=== PATIENT | female | born 1985 | race Caucasian/White ===

== ENCOUNTER 2021-10-30 05:46 | Emergency (ER) | payer OTHER, SELFPAY ==
[2021-10-30] VITALS (7 sets, daily range): BP systolic 115–148; BP diastolic 67–93; PULSE 76–103; RESP 14–18; TEMP 36.5–36.9; O2SAT 97–100; BMI 32.2
--- NOTE | ~2021-10-30 | US_ITS ---
EXAMINATION: US OB limited CLINICAL INFORMATION: Pain COMPARISON: None TECHNIQUE: Transabdominal imaging of the uterus was performed utilizing estrada scale and color doppler technique, with m-mode imaging. FINDINGS: Single live intrauterine fetus in the breech position with cardiac activity detected at 158 bpm. movement is present. Amniotic fluid volume was not measured prior ordering provider. Posterior placenta. No perigestational hemorrhage. No images were taken documenting the placental edge however it was not visualized on views of the cervix. No color images were obtained of the cervix to exclude vasa previa. Limited views of the cervix given bladder was nondistended and it was not well evaluated, however appears to measure approximately 4.3 cm. anatomic survey and biometric measurements were not obtained per ordering provider. The ovaries were not identified. No adnexal mass. US/US OB limited IMPRESSION: Single living intrauterine gestation in breech position with cardiac activity detected at 158 bpm. Posterior placenta. No perigestational hemorrhage. No images were taken documenting the placental edge however it was not visualized on views of the cervix. No color images were obtained of the cervix to exclude vasa previa. Limited views of the cervix given bladder was nondistended and it was not well evaluated on the however appears to measure approximately 4.3 cm. A repeat could be considered subsequent to bladder filling. The ovaries were not identified transabdominally. No adnexal mass.
--- NOTE | 2021-10-30 06:25 | PC.NURSE ---
This RN used heart monitor to listen to heart rate. Heart rate found to be 152. PT is still experiencing cramping pain in left lower quadrant.
[2021-10-30 06:52] LABS: MANUAL DIFF FLAG NO
[2021-10-30 06:53] LABS: Basophils Percent Auto 0.2 % (0-2); Eosinophils Percent Auto 0.1 % (0-4); Hematocrit 34.4 % (37.0-47.0); Hemoglobin 11.8 g/dl (12.0-16.0); Imm Gran Abs Auto 0.13 X10*3/uL (0.00-0.03); Lymphocytes Absolute Auto 1.5 X10*3/uL (1.2-4.9); Lymphocytes Percent Auto 11.6 % (20-40); Mean Corpuscular HGB Conc 34.3 g/dl (31.0-35.0); Mean Corpuscular Hemoglobin 31.1 pg (27.0-33.0); Mean Corpuscular Volume 90.5 fL (80.0-98.0); Mean Platelet Volume 8.6 fL (9.4-12.3); Monocytes Absolute Auto 0.7 X10*3/uL (0.1-1.2); Monocytes Percent Auto 5.5 % (2-11); Neutrophils Absolute Auto 10.6 x10*3/uL (2.0-8.3); Neutrophils Percent Auto 81.6 % (45-73); Platelet Count 254 X10*3/uL (160-400); Red Cell Distribution Width 12.3 % (11.0-16.0)
[2021-10-30 06:54] LABS: Appearance Urine CLEAR; Color Urine YELLOW; Glucose Urine UA NEG (NEG); Leukocyte Esterase Urine NEG (NEG); Nitrite Urine NEG (NEG); Specific Gravity - Urine <= 1.005 (1.005-1.025); Urine Blood NEG (NEG); Urine Ketones NEG (NEG); Urine Protein NEG (NEG-TRACE)
--- NOTE | 2021-10-30 07:01 | ED_ITS ---
HPI - Nausea/Vomiting/Diarrhea General Chief complaint: Vaginal Bleeding Stated complaint: vaginal bleed 23 wks preg Time Seen by Provider: 10/30/21 06:35 Source: patient Mode of arrival: ambulatory Limitations: no limitations History of Present Illness HPI Narrative: FHT 152 - 23 weeks seen at [facility] no issues during this comes in after developing LLQ pain and diarrhea yesterday then noted intermittent bouts of bloody stool with clots since 630pm about 2 per hour with LLQ cramping - no aspirin, food exposures, fam hx of IBD, recent antibiotics, no prior issues with bleeding in the past MD elicited complaint: diarrhea and abdominal pain Onset (ago): day(s) (1) Associated nausea: No Associated abdominal pain: Yes Location of pain: LLQ Pain consistency: colicky Severity: moderate Quality: cramping Exacerbating factors: bowel movement Relieving factors: none Associated symptoms: loss of appetite and other (hematochezia) Related Data Allergies Allergy/AdvReac Type Severity Reaction Status Date / Time azithromycin AdvReac Hives Verified 10/30/21 06:01 Review of Systems Review of Systems: Constitutional : No Weight loss, No Fever, No Chills ENT/Mouth : No sore throat, No Rhinorrhea Eyes: No Swelling, No Redness Cardiovascular : No Chest Pain, No SOB, NoEdema Respiratory : No Cough, No Sputum, No Wheezing Gastrointestinal : Positive Nausea, no Vomiting, positive Diarrhea, positive abdominal Pain, pos Hematochezia, No Melena Genitourinary : No Dysuria, No Urinary Frequency, No Hematuria, No Urgency Musculoskeletal : No joint pain, No Myalgias, No Joint Swelling Skin : No Skin Lesions, No rash Neuro : No Weakness, No Numbness, No Dizziness, No Headache Psych : No Anxiety/Panic, No Depression Heme/Lymph: No Bruising, No Lymphadenopathy Endocrine : No Polyuria, No Polydipsia All other systems reviewed and are negative. Gastrointestinal: Gastrointestinal: Denies nausea PMFSH Past Medical History Medical History No known health problems Social History Social History Alcohol intake: never Patient Tobacco Use Status: Never used Tobacco Use of substances other than those prescribed or required for medical reasons: No Advance Directives: No Advance Directives Information Provided: No Patient : Yes Physical Exam Vital Signs: Vital Signs: Last Vital Signs Temp 98.5 F 10/30/21 09:27 Pulse 90 10/30/21 11:57 Resp 18 10/30/21 11:57 BP 142/70 H 10/30/21 11:57 Pulse Ox 100 10/30/21 11:57 BMI result Body Mass Index 32.2 Appearance: Alert. Oriented X3. No acute distress. Eyes: Pupils equal, round and reactive to light. ENT: Pharynx normal. Neck: Normal inspection. Neck supple. CVS: Normal heart rate and rhythm. Pulses normal. Respiratory: No respiratory distress. Breath sounds normal. Abdomen: Soft and mild LLQ pain no rebound : cervix closed - sterile exam, no blood on gloves Rectal: light brown stool Skin: Skin warm and dry. Normal skin color. Extremities: No lower extremity edema. Neuro: Oriented X 3. No motor deficit. No sensory deficit. Course Course Course Narrative: discussed with Dr. Lennon given pain needs to go where she can also have monitoring while admitted will consult [facility] given 23 weeks - initial BP high due to anxiety, repeat 120s, after being told she had COVID went back up to 140s will repeat. after talking to patient about her COVID status she notes she started to feel unwell around Tuesday call to [facility] 8am - spoke to Dr. Yoon no need for OB transfer at this time not viable would require medical admission and intermittent FHT monitoring while admitted but no other OB interventions, [facility] states that they are currently closed to admissions at this time. call to [facility] for possible acceptance of transfer given colitis, abdominal pain and we do not have capabilities given we lack any capabilities while patient admitted to do OB care such as monitoring or NST testing - discussed with Dr. Clark - Dr. Hawley declined transfer at this time to [facility]. 832am Dr. Lennon aware - states we cannot admit her to our hospital at this time and we need to call other hospitals for transfer. [facility] refused transfer, 852am [facility] is currently presenting case for possible transfer at this time [facility] declined - attempt [facility] transfer per their recommendations [facility] has refused transfer due to insurance issues, fluctuations in BP due to stress. [facility] not available for transfer at this time discussed with [facility] transfer line 937am spoke to [facility] Dr. Vasquez - this does not sound like labor likely colitis - if anything changes they will take her but at this time seems like a GI issue. Will notify OB Dr. Lennon has been at bedside to evaluate patient no GIB while in ED, on IVF, VS stable, pending further input on exact dates per OB - US ordered. [facility] after discussion with Dr. Lennon has refused transfer as well 1151am no diarrhea here, antibiotics held at this time in case of E. Coli O157 - she is stable no fevers, no worsening pain no further bouts - will hold antibiotics unless diarrhea returns as this could be self limited and transient, HR stable self limiting most likely no pain, no diarrhea in 7.5 hours, VS stable, she was offered admission here aware we don't have monitoring since she feels so much better and no symptoms now and has been observed for several hours she wants to go home and monitor herself. She will follow up with her OB. She is going to avoid solids for 24 hours. She will seek care if her symptoms return. She is educated, appropriate and all questions answered. She notes she would feel better at home. She also has no resp issues or complaints with normal O2 - COVID standpoint. Antibiotics as likely self limiting since symptoms stopped no pain, VS stable, not immunocompromised no further bouts of diarrhea Procedures Procedure Narrative Procedure Narrative: bedside limited US - singlue IUP with activity and FHR MDM - Nausea/Vomiting/Diarrhea MDM Narrative Medical decision making narrative: 36 yo female with LLQ pain, nausea, unvaccinated reports vomiting earlier in the week no known food exposures no reports diarrhea yesterday and now developing bloody stools overnight - no prior hx no prior bouts, no ASA use, no issues with baby she is 23 weeks good activity on US and FHT 152, suspect possible COVID and colitis - IVF, tylenol, consult to OB/medicine, will need admission Lab Data Result diagrams: 10/30/21 06:45 10/30/21 06:45 Labs: Lab Results 10/30/21 10/30/21 10/30/21 Range/Units 06:43 06:43 06:45 WBC 13.0 H (4.8-10.8) X10*3/uL RBC 3.80 L (4.20-5.50) X10*6/uL Hgb 11.8 L (12.0-16.0) g/dl Hct 34.4 L (37.0-47.0) % MCV 90.5 (80.0-98.0) fL MCH 31.1 (27.0-33.0) pg MCHC 34.3 (31.0-35.0) g/dl RDW 12.3 (11.0-16.0) % Plt Count 254 (160-400) X10*3/uL MPV 8.6 L (9.4-12.3) fL Immature Gran % (Auto) 1.0 H (0.0-0.4) % Neut % (Auto) 81.6 H (45-73) % Lymph % (Auto) 11.6 L (20-40) % [place] % (Auto) 5.5 (2-11) % Eos % (Auto) 0.1 (0-4) % Baso % (Auto) 0.2 (0-2) % Lymph # (Auto) 1.5 (1.2-4.9) X10*3/uL [place] # (Auto) 0.7 (0.1-1.2) X10*3/uL Eos # (Auto) 0.0 (0.0-0.4) X10*3/uL Baso # (Auto) 0.0 (0.0-0.2) X10*3/uL Abs Immat Gran (auto) 0.13 H (0.00-0.03) X10*3/uL Absolute Neuts (auto) 10.6 H (2.0-8.3) x10*3/uL Absolute Nucleated RBC 0.000 (0.0-0.012) X10*3/uL Nucleated RBC % (auto) 0.0 (0.0-0.2) /100WBC PT (9.9-13.0) SEC INR (0.9-1.1) APTT (24.1-38.0) SEC Sodium (135-145) mmol/L Potassium (3.3-5.1) mmol/L Chloride (96-108) mmol/L Carbon Dioxide (22-29) mmol/L Anion Gap (12-20) BUN (9-16) mg/dL Creatinine (0.5-1.4) mg/dL Estim Creat Clear Calc Estimated GFR Random Glucose (60-115) mg/dL Lactic Acid (0.5-2.0) mmol/L Calcium (8.4-10.2) mg/dL Total Bilirubin (0.0-1.0) mg/dL Direct Bilirubin (0.0-0.5) mg/dL AST (5-31) U/L ALT (0-31) U/L Alkaline Phosphatase (39-117) U/L C-Reactive Protein (< or = 0.50) mg/dL Total Protein (6.5-8.0) g/dL Albumin (3.5-5.0) g/dL Urine Color YELLOW Urine Appearance CLEAR Urine pH 7.0 (5.0-8.0) Ur Specific [place] <= 1.005 (1.005-1.025) Urine Protein NEG (NEG-TRACE) MG/DL Urine Glucose (UA) NEG (NEG) MG/DL Urine Ketones NEG (NEG) MG/DL Urine Blood NEG (NEG) Urine Nitrite NEG (NEG) Ur Leukocyte Esterase NEG (NEG) Stool Occult Blood (NEGATIVE) COVID-19 (CIARA) Positive A (Negative) COVID-19 Clin Com See Note Blood Type 10/30/21 10/30/21 10/30/21 Range/Units 06:45 06:45 07:20 WBC (4.8-10.8) X10*3/uL RBC (4.20-5.50) X10*6/uL Hgb (12.0-16.0) g/dl Hct (37.0-47.0) % MCV (80.0-98.0) fL MCH (27.0-33.0) pg MCHC (31.0-35.0) g/dl RDW (11.0-16.0) % Plt Count (160-400) X10*3/uL MPV (9.4-12.3) fL Immature Gran % (Auto) (0.0-0.4) % Neut % (Auto) (45-73) % Lymph % (Auto) (20-40) % [place] % (Auto) (2-11) % Eos % (Auto) (0-4) % Baso % (Auto) (0-2) % Lymph # (Auto) (1.2-4.9) X10*3/uL [place] # (Auto) (0.1-1.2) X10*3/uL Eos # (Auto) (0.0-0.4) X10*3/uL Baso # (Auto) (0.0-0.2) X10*3/uL Abs Immat Gran (auto) (0.00-0.03) X10*3/uL Absolute Neuts (auto) (2.0-8.3) x10*3/uL Absolute Nucleated RBC (0.0-0.012) X10*3/uL Nucleated RBC % (auto) (0.0-0.2) /100WBC PT (9.9-13.0) SEC INR (0.9-1.1) APTT (24.1-38.0) SEC Sodium 138 (135-145) mmol/L Potassium 3.5 (3.3-5.1) mmol/L Chloride 102 (96-108) mmol/L Carbon Dioxide 26 (22-29) mmol/L Anion Gap 14 (12-20) BUN 4 L (9-16) mg/dL Creatinine 0.56 (0.5-1.4) mg/dL Estim Creat Clear Calc 142.6 Estimated GFR > 60 Random Glucose 97 (60-115) mg/dL Lactic Acid 1.8 (0.5-2.0) mmol/L Calcium 9.0 (8.4-10.2) mg/dL Total Bilirubin 0.3 (0.0-1.0) mg/dL Direct Bilirubin < 0.2 (0.0-0.5) mg/dL AST 14 (5-31) U/L ALT 14 (0-31) U/L Alkaline Phosphatase 47 (39-117) U/L C-Reactive Protein 1.70 H (< or = 0.50) mg/dL Total Protein 6.4 L (6.5-8.0) g/dL Albumin 3.8 (3.5-5.0) g/dL Urine Color Urine Appearance Urine pH (5.0-8.0) Ur Specific [place] (1.005-1.025) Urine Protein (NEG-TRACE) MG/DL Urine Glucose (UA) (NEG) MG/DL Urine Ketones (NEG) MG/DL Urine Blood (NEG) Urine Nitrite (NEG) Ur Leukocyte Esterase (NEG) Stool Occult Blood (NEGATIVE) COVID-19 (CIARA) (Negative) COVID-19 Clin Com Blood Type A Positive 10/30/21 10/30/21 Range/Units 07:20 07:21 WBC (4.8-10.8) X10*3/uL RBC (4.20-5.50) X10*6/uL Hgb (12.0-16.0) g/dl Hct (37.0-47.0) % MCV (80.0-98.0) fL MCH (27.0-33.0) pg MCHC (31.0-35.0) g/dl RDW (11.0-16.0) % Plt Count (160-400) X10*3/uL MPV (9.4-12.3) fL Immature Gran % (Auto) (0.0-0.4) % Neut % (Auto) (45-73) % Lymph % (Auto) (20-40) % [place] % (Auto) (2-11) % Eos % (Auto) (0-4) % Baso % (Auto) (0-2) % Lymph # (Auto) (1.2-4.9) X10*3/uL [place] # (Auto) (0.1-1.2) X10*3/uL Eos # (Auto) (0.0-0.4) X10*3/uL Baso # (Auto) (0.0-0.2) X10*3/uL Abs Immat Gran (auto) (0.00-0.03) X10*3/uL Absolute Neuts (auto) (2.0-8.3) x10*3/uL Absolute Nucleated RBC (0.0-0.012) X10*3/uL Nucleated RBC % (auto) (0.0-0.2) /100WBC PT 12.4 (9.9-13.0) SEC INR 1.1 (0.9-1.1) APTT 32.3 (24.1-38.0) SEC Sodium (135-145) mmol/L Potassium (3.3-5.1) mmol/L Chloride (96-108) mmol/L Carbon Dioxide (22-29) mmol/L Anion Gap (12-20) BUN (9-16) mg/dL Creatinine (0.5-1.4) mg/dL Estim Creat Clear Calc Estimated GFR Random Glucose (60-115) mg/dL Lactic Acid (0.5-2.0) mmol/L Calcium (8.4-10.2) mg/dL Total Bilirubin (0.0-1.0) mg/dL Direct Bilirubin (0.0-0.5) mg/dL AST (5-31) U/L ALT (0-31) U/L Alkaline Phosphatase (39-117) U/L C-Reactive Protein (< or = 0.50) mg/dL Total Protein (6.5-8.0) g/dL Albumin (3.5-5.0) g/dL Urine Color Urine Appearance Urine pH (5.0-8.0) Ur Specific [place] (1.005-1.025) Urine Protein (NEG-TRACE) MG/DL Urine Glucose (UA) (NEG) MG/DL Urine Ketones (NEG) MG/DL Urine Blood (NEG) Urine Nitrite (NEG) Ur Leukocyte Esterase (NEG) Stool Occult Blood POSITIVE (NEGATIVE) COVID-19 (CIARA) (Negative) COVID-19 Clin Com Blood Type Critical Care Time Critical Care Time Critical Care Time: Yes Total Critical Care Time: 60 Attestation: medical consults, multiple calls to tertiary centers, discussion with patient. I attest to this time spent taking care of the patient Discharge Plan Discharge Clinical Impression: COVID-19, Hematochezia, Colitis Abdominal pain Qualifiers: Abdominal location: left lower quadrant Qualified Code(s): R10.32 - Left lower quadrant pain Patient Disposition: Home, Self-Care Instructions: Colitis (ED), Rectal Bleeding (ED), COVID-19 (Coronavirus Disease 2019) (ED) Additional Instructions: return to ED for any worsening symptoms or concerns seek care if your symptoms return, clear liquids for 24 hours likely self limiting given diarrhea has stopped. no pepto bismol monitor your breathing - seek care if you have any issues wear a mask and quarantine you were offered admission but after much discussion and consideration it was decided that you would monitor symptoms from home. please call your OBGYN provider YOU WILL ALSO NEED CLOSE GI FOLLOW UP PLEASE OBTAIN REFERRAL FROM YOUR PRIMARY CARE OR OUR GI DOCTOR Referrals: Bryson Cota [Physician] - 1 week Stand Alone Forms: Work/School Release
[2021-10-30 07:19] LABS: Alanine Aminotransferase 14 U/L (0-31); Albumin Level 3.8 g/dL (3.5-5.0); Alkaline Phosphatase 47 U/L (39-117); Anion Gap 14 (12-20); Aspartate Amino Transferase 14 U/L (5-31); Bilirubin Direct < 0.2 mg/dL (0.0-0.5); Bilirubin Total 0.3 mg/dL (0.0-1.0); Blood Urea Nitrogen 4 mg/dL (9-16); Carbon Dioxide 26 mmol/L (22-29); Chloride 102 mmol/L (96-108); Creatinine Clr Calc Pharmacy 142.6; Estimated Glomerular Filt Rate > 60; Glucose Random 97 mg/dL (60-115); Potassium 3.5 mmol/L (3.3-5.1); Sodium 138 mmol/L (135-145); Total Protein 6.4 g/dL (6.5-8.0)
[2021-10-30 07:30] LABS: OBS Int Ctl Valid YES; OBS1 POSITIVE (NEGATIVE)
[2021-10-30 07:31] LABS: COVID-19 Test Positive (Negative); IDNOW Serial# 9DD0AD1C
[2021-10-30 07:35] LABS: INTERNATIONAL NORM RATIO 1.1 (0.9-1.1); Prothrombin Time 12.4 SEC (9.9-13.0)
[2021-10-30 07:38] LABS: Partial Thromboplastin Time 32.3 SEC (24.1-38.0)
--- NOTE | 2021-10-30 07:41 | PM.OBCN ---
OB Consult Note - [facility] Data Service Date: 10/30/21 Primary Care Provider: Unknown Physician Narrative I was consulted on Roseann Escalera who is a 36 year old female who presented to the emergency room at 23 weeks and 4 days of gestation with no issues during her with LLQ pain and diarrhea that started yesterday then the patient noted intermittent bouts of bloody stool since 630pm about 2 per hour , no vaginal bleeding leakage of fluid. Bedside limited ultrasound done by Dr. Davila revealed a single intrauterine with heart at 152. 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 Review of Systems ROS Unobtainable: All systems reviewed & are unremarkable except as noted in HPI and below OB PMFSH Past Medical History Medical History No known health problems Social History Social History Alcohol intake: never Patient Tobacco Use Status: Never used Tobacco Use of substances other than those prescribed or required for medical reasons: No Advance Directives: No Advance Directives Information Provided: No Patient : Yes Meds Allergies Allergy/AdvReac Type Severity Reaction Status Date / Time azithromycin AdvReac Hives Verified 10/30/21 06:01 Active Medications: Current Medications Sodium Chloride (Ns) 1,000 mls @ 999 mls/hr IVCONT .Q1H1M OSIEL Stop: 10/30/21 08:00 OB Physical Exam Physical Exam Additional Comments: Blood pressure: systolic BP above 140 x3 times, diastolic blood pressure above 90 x1 over 3-[address] done [address] Davila: Abdomen: Soft and mild LLQ pain no rebound Rectal: light brown stool Cervix: Long and closed Evaluation Baseline FHR:: 152 OB Consult Results Labs CBC & Chem 7: 10/30/21 06:45 10/30/21 06:45 Labs: Short CBC 10/30/21 Range/Units 06:45 WBC 13.0 H (4.8-10.8) X10*3/uL Hgb 11.8 L (12.0-16.0) g/dl Hct 34.4 L (37.0-47.0) % Plt Count 254 (160-400) X10*3/uL BMP 10/30/21 06:45 Sodium 138 Potassium 3.5 Chloride 102 Carbon Dioxide 26 BUN 4 L Creatinine 0.56 Calcium 9.0 Liver Function 10/30/21 Range/Units 06:45 Total Bilirubin 0.3 (0.0-1.0) mg/dL Direct Bilirubin < 0.2 (0.0-0.5) mg/dL AST 14 (5-31) U/L ALT 14 (0-31) U/L Alkaline Phosphatase 47 (39-117) U/L Albumin 3.8 (3.5-5.0) g/dL Urine 10/30/21 Range/Units 06:43 Urine Color YELLOW Urine Appearance CLEAR Urine pH 7.0 (5.0-8.0) Ur Specific [place] <= 1.005 (1.005-1.025) Urine Protein NEG (NEG-TRACE) MG/DL Urine Glucose (UA) NEG (NEG) MG/DL OB - CN: A/P Assessment and Plan (1) related abdominal pain of lower quadrant, antepartum: Status: Acute Assessment and Plan: Since the patient is having abdominal cramping with bloody diarrhea, possible causes include but not limited to colitis and others but cannot rule out contractions, I recommended to transfer the patient to [facility] to rule out contraction Update note at 08:45> Dr. Davila called [facility] and [facility] both declined the transfer. Discuss with Dr. Davila that since the patient is 23 weeks and 4 days of gestation having abdominal pain, and contractions cannot be ruled, the patient cannot be admitted at [facility] because there is no OB unit/Marlette monitor , will need to be transferred to a hospital with OB /triage unit Update note at 10:15am> All hospitals in the [facility] declined transfer, will keep the patient for observation, OB ultrasound to rule out OB causes of abdominal pain, cervical length, IV hydration, Tylenol for temperature equal or above 100.4, H&H in 12 hours, will monitor for persistence and/or worsening abdominal pain/tightening, any vaginal bleeding or leakage of fluid. Call#2 to [facility] transfer line D/w Dr Chaidez asked to observe the pt, only if she is in labor/ doccumented cervical change to transfer the pt (2) COVID-19: Status: Acute Assessment and Plan: IV fluid, keep temperature below 100.4, antiemetics p.r.n. keep for observation, repeat H&H in 12 hours, Recommends for monoclonal antibody (3) Hypertension affecting in second trimester: Status: Acute Assessment and Plan: The patient gives a history of white coat syndrome. There were 3 systolic blood pressure readings above 140 and 1 diastolic blood pressure was above 90 over 3-4 hours, but pressure normalized afterwards. In addition, platelets, creatinine and liver function tests are normal, the patient needs blood pressure monitoring if blood pressure =or above 140 and/or 90 at least 4 hours apart will treat accordingly
[2021-10-30 07:42] LABS: Lactic Acid 1.8 mmol/L (0.5-2.0)
[2021-10-30] MEDS: 0.9 % Sodium Chloride 1,000 ML 999 ML IVCONT (07:46)
--- NOTE | 2021-10-30 07:58 | PC.NURSE ---
call out to [facility] @ [phone] for possible transfer. spoke with britany in patient placement. she states she will call us back when the page out to the providers is returned.
[2021-10-30] MEDS: 0.9 % Sodium Chloride 1,000 ML 100 ML IVCONT (10:27)
--- NOTE | 2021-10-30 10:56 | PC.NURSE ---
dr johnson at bedside speaking w pt.
== END 2021-10-30 15:56 | disposition home or self-care (01) ==
PROVIDERS: Emergency Provider Emergency Medicine
DX: O98.512 Other viral diseases complicating pregnancy, second trimester (principal); U07.1 COVID-19; O16.2 Unspecified maternal hypertension, second trimester; O26.892 Other specified pregnancy related conditions, second trimester; R10.32 Left lower quadrant pain; O09.522 Supervision of elderly multigravida, second trimester; Z3A.23 23 weeks gestation of pregnancy
CPT/HCPCS: 36415; 76815; 80048; 80076; 81003; 82272; 83605; 85025; 85610; 85730; 86140; 86900; 86901; 87040; 87635; 96360; 96361; 99284; 99291